=== PATIENT | female | born 1990 | race Caucasian/White ===

== ENCOUNTER 2017-10-01 14:16 | Emergency (ER) | payer SELFPAY ==
[2017-10-01 14:34] VITALS: RESP 16
[2017-10-01 15:50] LABS: % IMMATURE GRANULYOCYTES 0.3 % (0.0-1.1); ABSOLUTE IMMATURE GRANULOCYTES 0.02 10^3/uL (0.00-0.10); ADD DIFF? NO; ADD MORPH? NO; ADD SCAN? NO; ATYPICAL LYMPHOCYTE FLAG 10 (0-99); FRAGMENT RBC FLAG 0 (0-99); HEMATOCRIT 37.7 % (38.0-47.0); HEMOGLOBIN 12.9 g/dL (12.6-16.3); LEFT SHIFT FLG 0 (0-99); LIPEMIA HEMOLYSIS FLAG 90 (0-99); MEAN CELL HEMOGLOBIN CONCENTR. 34.2 g/dL (32.4-36.7); MEAN CELL VOLUME 84.7 fL (81.5-99.8); MEAN PLATELET VOLUME 10.2 fL (8.7-11.7); PLATELET CLUMPS FLAG 0 (0-99); PLATELET COUNT 275 10^3/uL (150-400); RED BLOOD CELL COUNT 4.45 10^6/uL (4.18-5.33); RED CELL DISTRIBUTION WIDTH 13.3 % (11.5-15.2)
--- NOTE | 2017-10-01 15:51 | EDPHY ---
General Narrative: CHIEF COMPLAINT: Swollen tonsil, throat pain HISTORY OF PRESENT ILLNESS: Patient complains of abnormality of the right tonsil since July. She said she noticed it was swollen and symmetric. Said it is painful and has some difficulty swallowing due to pain in the right tonsil. No stridor. Some right upper chest pain that feels "like ice when I swallow." No fever. No headache. No midline neck pain, no neck stiffness. No abdominal pain. No urinary complaints. Symptoms have all increased over the past 2 weeks without improvement. She has not been evaluated for this yet. REVIEW OF SYSTEMS: Ten systems reviewed and are negative unless otherwise noted in the HPI PCP: None SPECIALISTS: None PAST MEDICAL HISTORY: None PAST SURGICAL HISTORY: No surgical history SOCIAL HISTORY: Smoker. No alcohol or drug use. Works as a performer FAMILY HISTORY: Noncontributory EXAMINATION General Appearance: Alert, no distress Head: normocephalic, atraumatic Eyes: Pupils equal and round, no conjunctival pallor or injection ENT, Mouth: Mucous membranes moist. Uvula is midline. The tonsils are not enlarged and appears symmetric. There is no erythema or edema. Airway is widely patent. Neck: Normal inspection, supple, anterior cervical lymphadenopathy. Thyroid normal. Midline trachea. Respiratory: Lungs are clear to auscultation. No wheezing, rhonchi or crackles Cardiovascular: Regular rate and rhythm. No murmur. No carotid bruits. Back: non-tender, no bony abnormalities Neurological: A&O, nonfocal Skin: Warm and dry, no rash. No petechiae or purpura. Multiple tattoos Extremities: Nontender, no pedal edema Psychiatric: Mood and affect normal DIFFERENTIAL DIAGNOSES: Including but not limited to streptococcal pharyngitis, viral pharyngitis, tonsillar abscess, cysts, globus pallidus MDM: 3:15 p.m. Complaints of right-sided tonsillar asymmetry pain or over 2 months. On examination there is minimal asymmetry of the right tonsil. There is no deviation of the uvula. There is no evidence of abscess. I have ordered CT scan of the neck soft tissue to rule out any soft tissue abnormality. Ordered strep test laboratory studies. She is in no acute distress and airway is widely patent. 4:28 p.m. Plain film chest x-ray as read by me reveals no acute findings. CT of the neck soft tissue is been performed. I reviewed the images and the interpretation is pending. 5:05 p.m. Contacted by radiologist Dr. Go. CT scan of the neck soft tissue reveals no acute findings 5:15 p.m. Patient re-evaluated. I discussed the CT findings, laboratory study findings and chest x-ray. I do not have a source for her pain. She is in no acute distress and her airway remains patent. Her chest pain described as "ice when I swallow" is only present when swallowing, suggesting esophageal etiology. We discussed referring her to ENT for outpatient follow-up for further workup for her pain. We discussed ED precautions. We discussed [id number] anti- inflammatories and even [id number]-div-[id number] antihistamines as needed. We discussed [id number] antacids. She is comfortable with this plan and discharged home stable condition. Addendum This addendum is added at 5:05 p.m. on Friday, October 03. Chart reviewed discovers the patient was positive for strep A pharyngitis. This was on the reflex PCR testing. Patient's chart does document that she was contacted in the appropriate prescription was called in for her yesterday. - History Smoking Status: Current every day smoker - Objective Vital Signs: Initial Vital Signs Temperature (C) 98.6 F 10/01/17 14:31 Heart Rate 90 10/01/17 14:31 Respiratory Rate 16 10/01/17 14:31 Blood Pressure 116/76 10/01/17 14:31 O2 Sat (%) 99 10/01/17 14:31 O2 Delivery Mode Room Air Allergies/Adverse Reactions: SUSHI Allergy (Uncoded 10/01/17 14:31) Home Medications: Medication Instructions Recorded Azithromycin [Zithromax] 250 mg PO DAILY #6 tab 10/01/17 Laboratory Results: Laboratory Results 10/01/17 15:30 Medications Given: Discontinued Medications Azithromycin (Zithromax) 500 mg PO EDNOW ONE PRN Reason: Protocol Stop: 10/01/17 20:56 Last Admin: 10/02/17 14:39 Dose: 500 mg Departure - Departure Disposition: Home, Routine, Self-Care Clinical Impression: Neck pain, Chest wall pain Pharyngitis Qualifiers: Pharyngitis/tonsillitis etiology: unspecified etiology Qualified Code(s): J02.9 - Acute pharyngitis, unspecified Condition: Good Instructions: Chest Pain (ED), Pharyngitis (ED) Additional Instructions: 1. Contact ENT physician for outpatient follow-up 2. Return to ED for any worsening symptoms, shortness of breath or difficulty swallowing Referrals: Tra Prince MD [Medical Doctor] - As per Instructions Wilman Lobato DO [Doctor of Osteopathy] - As per Instructions Prescriptions: Azithromycin [Zithromax] 250 mg PO DAILY #6 tab
[2017-10-01] MEDS ORDERED: IOPAMIDOL (ISOVUE-300) 100 ML BTL ONE (16:03)
[2017-10-01 17:34] VITALS: BP 115/64; PULSE 68; TEMP 97.9; O2SAT 97
[2017-10-01] MEDS ORDERED: AZITHROMYCIN 250 MG TAB PO ONE (20:55)
[2017-10-02] MEDS ORDERED: AZITHROMYCIN 250 MG TAB PO ONE (14:26)
== END 2017-10-01 17:34 | disposition home or self-care (01) ==
DX: J02.9 Acute pharyngitis, unspecified (principal); M54.2 Cervicalgia; R07.89 Other chest pain; F17.200 Nicotine dependence, unspecified, uncomplicated
CPT/HCPCS: 82947-QW; Q9967

== ENCOUNTER 2018-01-26 19:43 | Emergency (ER) | payer SELFPAY ==
[2018-01-26 19:47] VITALS: BP 136/85; PULSE 112; RESP 16; TEMP 98.4; O2SAT 96
--- NOTE | 2018-01-26 20:26 | EDPHY ---
H & P Stated Complaint: painful urination Time Seen by Provider: 01/26/18 20:11 HPI/ROS: CHIEF COMPLAINT: "I might have urinary tract infection" HISTORY OF PRESENT ILLNESS: 27-year-old immunocompetent female complaining of 4 days of dysuria, hematuria, increased frequency, suprapubic discomfort. No nausea or vomiting. No back or flank pain. No flu-like symptoms. REVIEW OF SYSTEMS: A ten point review of systems was performed and is negative with the exception of the items mentioned in the HPI PAST MEDICAL & SURGICAL HISTORY: No pertinent medical or surgical history SOCIAL HISTORY: Daily smoker PHYSICAL EXAM (Prior to examination, patient consented to physical exam, hands were washed and my usual and customary physical exam procedures followed) 1) GENERAL: Well-developed, well-nourished, alert and oriented. Appears nontoxic 2) HEAD: Normocephalic, atraumatic 3) HEENT: Pupils equal, round, reactive to light bilaterally. Sclera anicteric. Nasopharynx, oropharynx, clear, no lesions. Moist mucous membranes 4) NECK: Full range of motion, no meningeal signs. 5) LUNGS: Clear auscultation bilaterally, no wheezes, no rhonchi, no retractions. 6) HEART: Regular rate and rhythm, no murmur, no heave, no gallop. 7) ABDOMEN: No guarding, no rebound, no focal tenderness, negative McBurney's, negative Yu's, negative Rovsing's, negative peritoneal sign, 8) MUSCULOSKELETAL: Moving all extremities, no focal areas of tenderness, no obvious trauma. No peripheral edema or discoloration. 9) BACK: No CVA tenderness, no midline vertebral tenderness, no fluctuance, no step-off, no obvious trauma, no visual or palpable abnormality. 10) SKIN: No rash, no petechiae. 11) Psychiatric: Patient is oriented X 3, there is no agitation. DIFFERENTIAL DIAGNOSIS: In no particular order including but not limited to cystitis, pyelonephritis, urosepsis - Personal History LMP (Females 10-55): 8-14 Days Ago Current Tetanus/Diphtheria Vaccine: Unsure Current Tetanus Diphtheria and Acellular Pertussis (TDAP): Unsure - Medical/Surgical History Hx Asthma: No Hx Chronic Respiratory Disease: No Hx Diabetes: No Hx Cardiac Disease: No Hx Renal Disease: No Hx Cirrhosis: No Hx Alcoholism: No Hx HIV/AIDS: No Hx Splenectomy or Spleen Trauma: No Other PMH: SPINAL INJ/PINCHED NERVE - Social History Smoking Status: Current every day smoker Constitutional: Initial Vital Signs Temperature (C) 36.9 C 01/26/18 19:46 Heart Rate 112 H 01/26/18 19:46 Respiratory Rate 16 01/26/18 19:46 Blood Pressure 136/85 H 01/26/18 19:46 O2 Sat (%) 96 01/26/18 19:46 O2 Delivery Mode Room Air Allergies/Adverse Reactions: SUSHI Allergy (Uncoded 10/01/17 14:31) Home Medications: Medication Instructions Recorded Azithromycin [Zithromax] 250 mg PO DAILY #6 tab 10/01/17 Medical Decision Making ED Course/Re-evaluation: 8:24 p.m.: I feel the patient can be treated on an outpatient basis as I believe her to be a competent decision-maker, she shows no signs of urosepsis, afebrile, no comorbid medical conditions. Doubt pyelonephritis. Nonetheless, I have provided acute urinary tract infection red flag signs and symptoms precautions, and reasons to return to the emergency department. The patient understands that this diagnosis is provisional and can never be 100% accurate. Usual and customary warnings were given concerning the clinical impression and all the patient's questions were answered. The patient was instructed to return to the emergency department should her symptoms worsen or return, or develop any new symptoms, otherwise to followup as directed in discharge instructions. Care of patient under supervision of secondary supervising physician Dr Toi Olivarez. - Data Points Laboratory Results: 01/26/18 19:45 Urine Color YELLOW Urine Appearance MODERATELY TURBID Urine pH 6.0 (5.0-7.5) Ur Specific [place] 1.003 (1.002-1.030) Urine Protein 2+ H (NEGATIVE) Urine Ketones NEGATIVE (NEGATIVE) Urine Blood 2+ H (NEGATIVE) Urine Nitrate NEGATIVE (NEGATIVE) Urine Bilirubin NEGATIVE (NEGATIVE) Urine Urobilinogen NEGATIVE EU EU (0.2-1.0) Ur Leukocyte Esterase 3+ H (NEGATIVE) Urine RBC 5-10 /hpf H /hpf (0-3) Urine WBC 50-182 /hpf H /hpf (0-3) Ur Epithelial Cells TRACE /lpf /lpf (NONE-1+) Urine Bacteria 3+ /hpf H /hpf (NONE SEEN) Urine Mucus TRACE /lpf /lpf (NONE-1+) Urine Glucose NEGATIVE (NEGATIVE) Departure - Departure Disposition: Home, Routine, Self-Care Clinical Impression: Urinary tract infection Qualifiers: Urinary tract infection type: acute cystitis Hematuria presence: with hematuria Qualified Code(s): N30.01 - Acute cystitis with hematuria Condition: Good Instructions: Urinary Tract Infection in Women (ED), Cephalexin (By mouth), Phenazopyridine (By mouth) Additional Instructions: Return to the ER immediately if you experience fevers/chills, flu like symptoms , inability to tolerate oral intake, nausea or vomiting, or any other symptoms that concern you. Referrals: [facility],. [Clinic] - 2-3 days, call for appt.
[2018-01-26] MEDS ORDERED: CEPHALEXIN 500MG PREPACK#4 BTL TAKEHOME ONE (20:27)
[2018-01-26] MEDS ORDERED: PHENAZOPYRIDINE HCL 200 MG TAB PO ONE (20:28)
[2018-01-26] MEDS ORDERED: PHENAZOPYRIDINE HCL 200 MG TAB ONE (20:40)
== END 2018-01-26 20:42 | disposition home or self-care (01) ==
DX: N30.01 Acute cystitis with hematuria (principal); B96.20 Unspecified Escherichia coli [E. coli] as the cause of diseases classified elsewhere; F17.200 Nicotine dependence, unspecified, uncomplicated

== ENCOUNTER 2018-03-23 14:34 | Emergency (ER) | payer OTHER ==
--- NOTE | 2018-03-23 14:40 | EDPHY ---
H & P Time Seen by Provider: 03/23/18 14:39 - Medical/Surgical History Hx Asthma: No Hx Chronic Respiratory Disease: No Hx Diabetes: No Hx Cardiac Disease: No Hx Renal Disease: No Hx Cirrhosis: No Hx Alcoholism: No Hx HIV/AIDS: No Hx Splenectomy or Spleen Trauma: No Other PMH: SPINAL INJ/PINCHED NERVE - Social History Smoking Status: Current every day smoker Allergies/Adverse Reactions: SUSHI Allergy (Uncoded 10/01/17 14:31) Home Medications: Medication Instructions Recorded Azithromycin [Zithromax] 250 mg PO DAILY #6 tab 10/01/17 Cephalexin [Keflex] 500 mg PO TID 7 Days cap 01/26/18 Phenazopyridine HCl [Pyridium] 200 mg PO PC #10 tab 01/26/18 Medical Decision Making ED Course/Re-evaluation: CHIEF COMPLAINT: HISTORY OF PRESENT ILLNESS: must have 4 elements: Location, Quality, Severity , Duration, Timing, Context, Modifying Factors, Associated Signs and Symptoms REVIEW OF SYSTEMS: A 10 point review of systems was performed and is negative with the exception of the elements mentioned in the history of present illness. PHYSICAL EXAM: HR, BP, O2 Sat, RR. Temp noted General Appearance: Alert, well hydrated, appropriate, and non-toxic appearing. Head: Atraumatic without scalp tenderness or obvious injury Eyes: Pupils equal, round, reactive to light and accommodation, EOMI, no trauma , no injection. Ears: Clear bilaterally, no perforation, normal landmarks Nose: Atraumatic, no rhinorrhea, clear. Throat: There is no erythema or exudates, no lesions, normal tonsils, mucus membranes moist. Neck: Supple, 2+ carotid upstroke, nontender, no lymphadenopathy. Respiratory: No retractions, no distress, no wheezes, and no accessory muscle use. Lungs are clear to auscultation bilaterally. Cardiovascular: Regular rate and rhythm, no murmurs, rubs, or gallops. Bilateral carotid, radial, dorsalis pedis, and posterior tibial pulses intact. Good capillary refill all extremities. Gastrointestinal: Abdomen is soft, nontender, non-distended, no masses, no rebound, no guarding, no peritoneal signs. Musculoskeletal: Normal active ROM of all extremities, atraumatic. Neurological: Alert, appropriate, and interactive. The patient has normal DTRs and non-focal cranial nerves, motor, sensory, and cerebellar exam. Skin: No rashes, good turgor, no nodules on palpation. Past medical history: Past surgical history: Family history: Social history: DIAGNOSTICS/PROCEDURES/CRITICAL CARE TIME: DIFFERENTIAL DIAGNOSIS: MEDICAL DECISION MAKING: Departure - Departure Condition: Good Referrals: NONE *PRIMARY CARE P,. [Primary Care Provider] - As per Instructions
--- NOTE | 2018-03-23 14:47 | CPEKG ---
Heart Rate: 121 RR Interval: 496 P-R Interval: 160 QRSD Interval: 74 QT Interval: 304 QTC Interval: 432 P [place]: 71 QRS [place]: 82 T Wave [place]: 10 EKG Severity - ABNORMAL ECG - EKG Impression: SINUS TACHYCARDIA EKG Impression: ABNORMAL Q SUGGESTS ANTERIOR INFARCT Electronically Signed By: Toi Olivarez 23-Mar-2018 14:59:01
--- NOTE | 2018-03-23 14:50 | EDPHY ---
H & P Stated Complaint: Fast Heart Rate Time Seen by Provider: 03/23/18 14:39 HPI/ROS: CHIEF COMPLAINT: Elevated heart rate HISTORY OF PRESENT ILLNESS: The patient presents to the ED with a 1 day history of tachycardia. The patient reports she has had a history of anxiety in the past but feels that this episode of tachycardia is worse. She reports mild dyspnea. She has had some symptoms of a chronic urinary tract infection for the past 2 months. She reportedly had an unremarkable urinalysis checked approximately 1 month ago. The patient is currently not taking any medications. She denies pleuritic chest pain. She denies asymmetric calf pain or swelling. REVIEW OF SYSTEMS: A comprehensive 10 point review of systems is otherwise negative aside from elements mentioned in the history of present illness. Source: Patient Exam Limitations: No limitations - Personal History LMP (Females 10-55): Over 28 Days Ago Current Tetanus Diphtheria and Acellular Pertussis (TDAP): No - Medical/Surgical History Hx Asthma: No Hx Chronic Respiratory Disease: No Hx Diabetes: No Hx Cardiac Disease: No Hx Renal Disease: No Hx Cirrhosis: No Hx Alcoholism: No Hx HIV/AIDS: No Hx Splenectomy or Spleen Trauma: No Other PMH: SPINAL INJ/PINCHED NERVE - Social History Smoking Status: Current every day smoker - Physical Exam Exam: General Appearance: Alert, no distress Eyes: Pupils equal and round no pallor or injection ENT, Mouth: Mucous membranes moist Respiratory: There are no retractions, lungs are clear to auscultation Cardiovascular: Tachycardic Gastrointestinal: Abdomen is soft and nontender, no masses, bowel sounds normal Neurological: 5/5 strength all 4 extremities Skin: Warm and dry, no rashes Musculoskeletal: Neck is supple nontender Extremities: symmetrical, full range of motion Constitutional: Initial Vital Signs Temperature (C) 37 C 03/23/18 14:39 Heart Rate 135 H 03/23/18 14:39 Respiratory Rate 18 03/23/18 14:39 Blood Pressure 153/97 H 03/23/18 14:39 O2 Sat (%) 97 03/23/18 14:39 O2 Delivery Mode Room Air Allergies/Adverse Reactions: SUSHI Allergy (Uncoded 10/01/17 14:31) Home Medications: Medication Instructions Recorded Azithromycin [Zithromax] 250 mg PO DAILY #6 tab 10/01/17 Cephalexin [Keflex] 500 mg PO TID 7 Days cap 01/26/18 Phenazopyridine HCl [Pyridium] 200 mg PO PC #10 tab 01/26/18 Medical Decision Making - Diagnostics EKG Interpretation: EKG: Complete interpretation has been separately recorded in the [facility] archive. Summary impression: Sinus tachycardia, rate 121, nonspecific T-wave changes noted. Imaging Results: Imaging Impressions Chest X-Ray 03/23/18 15:03 Impression: Exuberant inspiration versus air trapping. ED Course/Re-evaluation: The patient presents to the ED with complaints of palpitations for the past day. The patient is noted to have a slight sinus tachycardia. She is not hypoxic. She does not have pleuritic chest pain. She is low risk by Wells criteria. Her D-dimer is negative which I feel adequately excludes pulmonary embolism. The patient's troponin and TSH are also normal. The patient's urinalysis demonstrates no evidence of an active infection. Chest x-ray demonstrates no evidence of acute disease. I reviewed the patient's laboratory workup with her. At this point time I do not feel that further workup is indicated. I believe the tachycardia is likely secondary to anxiety. The patient will be referred to Dr. Carlin as she wishes to establish primary care. Differential Diagnosis: Differential diagnosis considered includes sinus tachycardia, anxiety, dehydration, metabolic abnormality, ectopic - Data Points Laboratory Results: Laboratory Results 03/23/18 14:50 03/23/18 14:50 03/23/18 03/23/18 03/23/18 14:50 14:50 14:50 WBC RBC Hgb Hct MCV MCH MCHC RDW Plt Count MPV Neut % (Auto) Lymph % (Auto) [place] % (Auto) Eos % (Auto) Baso % (Auto) Nucleat RBC Rel Count Absolute Neuts (auto) Absolute Lymphs (auto) Absolute Monos (auto) Absolute Eos (auto) Absolute Basos (auto) Absolute Nucleated RBC Immature Gran % Immature Gran # D-Dimer Sodium 140 mEq/L mEq/L (135-145) Potassium 3.9 mEq/L mEq/L (3.3-5.0) Chloride 101 mEq/L mEq/L (97-110) Carbon Dioxide 23 mEq/l mEq/l (22-31) Anion Gap 16 mEq/L mEq/L (8-16) BUN 15 mg/dL mg/dL (7-23) Creatinine 0.7 mg/dL mg/dL (0.6-1.0) Estimated GFR > 60 Glucose 92 mg/dL mg/dL (70-100) Calcium 9.0 mg/dL mg/dL (8.5-10.4) Troponin I < 0.012 ng/mL ng/mL (0.000-0.034) TSH Pending Beta HCG, Qual NEGATIVE Urine Color YELLOW Urine Appearance CLEAR Urine pH 5.0 (5.0-7.5) Ur Specific [place] 1.010 (1.002-1.030) Urine Protein NEGATIVE (NEGATIVE) Urine Ketones NEGATIVE (NEGATIVE) Urine Blood 1+ H (NEGATIVE) Urine Nitrate NEGATIVE (NEGATIVE) Urine Bilirubin NEGATIVE (NEGATIVE) Urine Urobilinogen NEGATIVE EU EU (0.2-1.0) Ur Leukocyte Esterase NEGATIVE (NEGATIVE) Urine RBC 1-3 /hpf /hpf (0-3) Urine WBC 1-3 /hpf /hpf (0-3) Ur Epithelial Cells 1+ /lpf /lpf (NONE-1+) Urine Bacteria TRACE /hpf H /hpf (NONE SEEN) Urine Mucus TRACE /lpf /lpf (NONE-1+) Urine Glucose NEGATIVE (NEGATIVE) 03/23/18 03/23/18 14:50 14:50 WBC 7.20 10^3/uL 10^3/uL (3.80-9.50) RBC 4.36 10^6/uL 10^6/uL (4.18-5.33) Hgb 12.3 g/dL L g/dL (12.6-16.3) Hct 37.7 % L % (38.0-47.0) MCV 86.5 fL fL (81.5-99.8) MCH 28.2 pg pg (27.9-34.1) MCHC 32.6 g/dL g/dL (32.4-36.7) RDW 15.8 % H % (11.5-15.2) Plt Count 262 10^3/uL 10^3/uL (150-400) MPV 10.3 fL fL (8.7-11.7) Neut % (Auto) 52.9 % % (39.3-74.2) Lymph % (Auto) 36.0 % % (15.0-45.0) [place] % (Auto) 8.8 % % (4.5-13.0) Eos % (Auto) 1.4 % % (0.6-7.6) Baso % (Auto) 0.8 % % (0.3-1.7) Nucleat RBC Rel Count 0.0 % % (0.0-0.2) Absolute Neuts (auto) 3.81 10^3/uL 10^3/uL (1.70-6.50) Absolute Lymphs (auto) 2.59 10^3/uL 10^3/uL (1.00-3.00) Absolute Monos (auto) 0.63 10^3/uL 10^3/uL (0.30-0.80) Absolute Eos (auto) 0.10 10^3/uL 10^3/uL (0.03-0.40) Absolute Basos (auto) 0.06 10^3/uL 10^3/uL (0.02-0.10) Absolute Nucleated RBC 0.00 10^3/uL 10^3/uL (0-0.01) Immature Gran % 0.1 % % (0.0-1.1) Immature Gran # 0.01 10^3/uL 10^3/uL (0.00-0.10) D-Dimer 0.43 ug/mLFEU ug/mLFEU (0.00-0.50) Sodium Potassium Chloride Carbon Dioxide Anion Gap BUN Creatinine Estimated GFR Glucose Calcium Troponin I TSH Beta HCG, Qual Urine Color Urine Appearance Urine pH Ur Specific [place] Urine Protein Urine Ketones Urine Blood Urine Nitrate Urine Bilirubin Urine Urobilinogen Ur Leukocyte Esterase Urine RBC Urine WBC Ur Epithelial Cells Urine Bacteria Urine Mucus Urine Glucose Medications Given: Discontinued Medications Sodium Chloride (Ns) 1,000 mls @ 0 mls/hr IV ONCE ONE; Wide Open PRN Reason: Protocol Stop: 03/23/18 15:04 Last Admin: 03/23/18 15:16 Dose: 1,000 mls Departure - Departure Disposition: Home, Routine, Self-Care Clinical Impression: Palpitations Condition: Good Instructions: Heart Palpitations (ED) Additional Instructions: 1. You have been given the contact number for [facility] to establish [facility] care. 2. The testing done in the emergency department demonstrates no significant abnormality. 3. Please follow up for any markedly worsening symptoms, chest pain, difficulty breathing or other concerns. Referrals: Plonska,Sharon, MD [Medical Doctor] - As per Instructions
[2018-03-23] MEDS ORDERED: NS 1,000 ML IV ONE (15:03)
[2018-03-23 15:23] LABS: PLATELET COUNT 262 10^3/uL (150-400)
[2018-03-23] MEDS ORDERED: IOPAMIDOL (ISOVUE-300) 100 ML BTL ONE (16:26)
[2018-03-23 16:56] VITALS: BP 135/87
== END 2018-03-23 17:35 | disposition home or self-care (01) ==
DX: R00.2 Palpitations (principal); F17.200 Nicotine dependence, unspecified, uncomplicated; E86.9 Volume depletion, unspecified
CPT/HCPCS: 84481-90; Q9967

== ENCOUNTER 2018-11-19 21:35 | Emergency (ER) | payer SELFPAY ==
[2018-11-19] MEDS ORDERED: TDAP ADULT 0.5 ML INJ (BOOSTRIX) IM ONE (22:15)
--- NOTE | 2018-11-19 22:20 | EDPHY ---
H & P Stated Complaint: hir head last night, poss lac,blurry vision, memory loss, sleepy Time Seen by Provider: 11/19/18 21:57 HPI/ROS: HPI: The patient presents with fall which occurred last night with ongoing headache, vision changes, confusion. The patient was taking a shower last night when she slipped on a wet surface while getting out and her posterior occiput hit the metal threshold. She did not lose consciousness though felt stunned and slowed after the injury. She took some medication and went to bed. She did notice that she had a cut on her scalp which was bleeding. Today she went to work though felt very sluggish, had difficulty doing math, did not feel that she was making sense when she was talking to her boss. She noticed that her vision out of her right eye was more blurry in the distance than usual. She has a continued persistent right-sided retro-orbital headache which is throbbing and moderate in severity. She is also complaining of pain throughout her neck. She is unsure of her last tetanus vaccination. REVIEW OF SYSTEMS 10 systems were reviewed and negative with the exception of the elements mentioned in the history of present illness. PMHx: History of L4-L5 disc herniation TRAUMA PHYSICAL General Appearance: Alert, no distress Head: 2.5 cm laceration to right posterior occiput which is not gaping Eyes: Pupils equal, round, reactive ENT, Mouth: No hemotypanium, no oral trauma Neck: Tender throughout her mid cervical C-spine with tenderness at the midline and in the paraspinal region Respiratory: No chest wall tenderness, no subcutaneous air, lungs clear bilaterally Cardiovascular: Regular rate and rhythm Abdomen: Abdomen is soft and non-tender, pelvis stable Skin: No lacerations, No abrasion Back: No midline T/L/S pain Extremities: Non-tender, full range of motion Neurological: A&Ox3, GCS=15,normal motor function with 5/5 strength in all 4 extremities, normal sensory exam Source: Patient Exam Limitations: No limitations - Personal History LMP (Females 10-55): 15-21 Days Ago Current Tetanus Diphtheria and Acellular Pertussis (TDAP): Yes - Medical/Surgical History Hx Asthma: No Hx Chronic Respiratory Disease: No Hx Diabetes: No Hx Cardiac Disease: No Hx Renal Disease: No Hx Cirrhosis: No Hx Alcoholism: No Hx HIV/AIDS: No Hx Splenectomy or Spleen Trauma: No Other PMH: SPINAL INJ/PINCHED NERVE. hypoglycemia - Social History Smoking Status: Current every day smoker Constitutional: Initial Vital Signs Temperature (C) 37 C 11/19/18 21:39 Heart Rate 94 11/19/18 21:39 Respiratory Rate 18 11/19/18 21:39 Blood Pressure 119/83 H 11/19/18 21:39 O2 Sat (%) 98 11/19/18 21:39 O2 Delivery Mode Room Air Allergies/Adverse Reactions: SUSHI Allergy (Uncoded 10/01/17 14:31) Home Medications: Medication Instructions Recorded NK [No Known Home Meds] 11/19/18 Medical Decision Making - Diagnostics Imaging Results: Imaging Impressions Cervical Spine CT 11/19/18 22:15 Impression: There is no acute intracranial abnormality identified on this unenhanced CT evaluation. UNENHANCED CT SCAN OF THE CERVICAL SPINE Technique: A multidetector unenhanced helical CT scan was obtained from the clivus caudally through the upper thoracic spine, with images reformatted at 1.50 mm increments, and are reviewed in soft tissue, bone, and lung windows. Parasagittal and paracoronal reconstructed images are reviewed on the workstation. The DFOV is 16.1 cm. A dose reduction protocol was used. Findings: The cervical vertebral body heights, posterior alignments, and the disk spaces are preserved. There is reversal of the normal cervical lordosis, suggestive of underlying muscle spasm. There is no acute fracture, or facet malalignment. The interspinous distances are normal. The craniocervical junction is normal. The predental space, and the atlantoaxial lateral mass alignment is normal. The base and the tip of the dens are normal. There is mild underlying congenital cervical canal stenosis. At C6-C7, there appears to be some mild circumferential disk bulging, slightly effacing the ventral thecal sac. This is seen on sagittal series 11, images 62-64. There is no neural foraminal impingement. There is no paravertebral or epidural hematoma identified. The prevertebral soft tissues are normal, as are the lung apices. Impression: 1. Reversal of the normal cervical lordosis, with mild broad-based circumferential disk bulging at C6-C7. 2. Mild underlying congenital canal stenosis. 3. There is no acute cervical osseous abnormality. If there is further clinical concern regarding the patient's symptoms, correlative MR imaging could be considered, if otherwise not contraindicated. Findings were discussed with Janie Dos Santos MD at 23:02, on 11/19/2018. Head CT 11/19/18 22:15 Impression: There is no acute intracranial abnormality identified on this unenhanced CT evaluation. UNENHANCED CT SCAN OF THE CERVICAL SPINE Technique: A multidetector unenhanced helical CT scan was obtained from the clivus caudally through the upper thoracic spine, with images reformatted at 1.50 mm increments, and are reviewed in soft tissue, bone, and lung windows. Parasagittal and paracoronal reconstructed images are reviewed on the workstation. The DFOV is 16.1 cm. A dose reduction protocol was used. Findings: The cervical vertebral body heights, posterior alignments, and the disk spaces are preserved. There is reversal of the normal cervical lordosis, suggestive of underlying muscle spasm. There is no acute fracture, or facet malalignment. The interspinous distances are normal. The craniocervical junction is normal. The predental space, and the atlantoaxial lateral mass alignment is normal. The base and the tip of the dens are normal. There is mild underlying congenital cervical canal stenosis. At C6-C7, there appears to be some mild circumferential disk bulging, slightly effacing the ventral thecal sac. This is seen on sagittal series 11, images 62-64. There is no neural foraminal impingement. There is no paravertebral or epidural hematoma identified. The prevertebral soft tissues are normal, as are the lung apices. Impression: 1. Reversal of the normal cervical lordosis, with mild broad-based circumferential disk bulging at C6-C7. 2. Mild underlying congenital canal stenosis. 3. There is no acute cervical osseous abnormality. If there is further clinical concern regarding the patient's symptoms, correlative MR imaging could be considered, if otherwise not contraindicated. Findings were discussed with Janie Dos Santos MD at 23:02, on 11/19/2018. Imaging: Discussed imaging studies w/ product marketing analyst Radiologist Differential Diagnosis: 28-year-old healthy female presents with fall in the shower about 24 hr ago, hitting her head without loss of consciousness, now with persistent headache, blurring of vision from her right eye, fogginess. Given her ongoing symptoms including headache she meets criteria for CT scan of her head. I will also scan her cervical spine as she is quite tender though this tenderness is diffuse. I will update her tetanus vaccine. Differential diagnosis includes subdural hemorrhage, intraparenchymal hemorrhage , concussion, cervical spinal fracture. In the emergency department, patient received tetanus booster. CT scans demonstrated no intracranial hemorrhage, no skull fracture, no cervical spinal fracture. I discussed her testing results with her. I feel she is likely suffering from a concussion and will need ongoing care. - Data Points Medications Given: Discontinued Medications Diphtheria/Tetanus/Acell Pertussis (Boostrix) 0.5 ml IM .ONCE ONE Stop: 11/19/18 22:16 Last Admin: 11/19/18 22:29 Dose: 0.5 ml Departure - Departure Disposition: Home, Routine, Self-Care Clinical Impression: Fall in (into) shower or empty bathtub, initial encounter Concussion Qualifiers: Encounter type: initial encounter Loss of consciousness presence/duration: without LOC Qualified Code(s): S06.0X0A - Concussion without loss of consciousness, initial encounter Condition: Good Instructions: Concussion (ED) Additional Instructions: I recommend you make sure to get plenty of rest until your feeling better. You can take ibuprofen 400 mg every 6 hr as needed for your headache. You should avoid doing any strenuous activity. I have given you information for Dr. Kelly to follow up within the next few days. Return to the ER if your worse in any way. Referrals: Lisbeth Kelly MD [Medical Doctor] - As per Instructions
[2018-11-19] MEDS ORDERED: CYCLOBENZAPRINE 10 MG TAB PO ONE (23:24)
[2018-11-19] MEDS ORDERED: CYCLOBENZAPRINE 10 MG TAB ONE (23:24)
[2018-11-19 23:27] VITALS: BP 122/66
== END 2018-11-19 23:26 | disposition home or self-care (01) ==
DX: S06.0X0A Concussion without loss of consciousness, initial encounter (principal); W18.2XXA Fall in (into) shower or empty bathtub, initial encounter; Y92.002 Bathroom of unspecified non-institutional (private) residence as the place of occurrence of the external cause